=== PATIENT | female | born 1955 | race Caucasian/White ===

== ENCOUNTER → 2017-05-24 | Outpatient (CLI) | payer BC ==
[~2017-05-24] MED LIST: DRV100 PO; IBUP600T44 PO; PXL20 PO; ROPI0.25 PO; TMXUNK
--- NOTE | 2017-05-27 08:01 | MAMMOGRAPHY REPORT ---
BILATERAL DIGITAL SCREENING MAMMOGRAM TOMOSYNTHESIS WITH CAD: 05/24/2017 CLINICAL HISTORY: Asymptomatic. Personal history of breast cancer. TECHNIQUE: Breast tomosynthesis in addition to standard 2D mammography was performed. Current study was also evaluated with a Computer Aided Detection (CAD) system. COMPARISON: Comparison is made to exams dated: 01/13/2016 mammogram, 12/06/2014 mammogram, 12/06/2014 s tereotactic biopsy, 11/24/2014 mammogram, 11/02/2014 mammogram, and 08/27/2013 mammogram - [facility]. BREAST COMPOSITION: The tissue of both breasts is heterogeneously dense, which may obscure small mas ses. FINDINGS: There is a possible small cluster of calcifications in the left 6:00 breast, for which spo t magnification views are recommended for further evaluation. The remainder of both breasts are stable compared to prior exams, without suspicious masses, calcific ations, or areas of architectural distortion noted. There is stable postsurgical architectural disto rtion in the right upper outer quadrant, with a linear scar marker denoting a scar on the right upper outer breast. A biopsy marker clip is again noted in the right superior breast from prior stereotac tic biopsy. Other scattered bilateral benign-appearing calcifications are not significantly changed. IMPRESSION: ACR BI-RADS CATEGORY 0: INCOMPLETE EVALUATION: NEED ADDITIONAL IMAGING EVALUATION Left breast calcifications, for which additional imaging evaluation is recommended. The patient will be called to schedule an appointment. Approximately 10% of breast cancers are not detected with mammography. A negative mammographic report should not delay biopsy if a clinically suggestive mass is present. Qiana Turcios M.D. ah/:05/25/2017 10:54:44 Knifeman: Renee De La Rosa M, [facility] letter sent: Addl Imaging 0 BI-RADS Code: ACR BI-RADS Category 0: Incomplete Evaluation: Need Additional Imaging Evaluation
== END | disposition home or self-care (01) ==
LOC: C.MAMM 14:24
PROVIDERS: ATTEND Physician Assistant
DX: Z12.31 Encounter for screening mammogram for malignant neoplasm of breast (principal); Z85.3 Personal history of malignant neoplasm of breast; N64.89 Other specified disorders of breast

== ENCOUNTER → 2017-05-31 | Outpatient (CLI) | payer BC ==
--- NOTE | 2017-05-31 14:13 | MAMMOGRAPHY REPORT ---
UNILATERAL LEFT DIGITAL DIAGNOSTIC MAMMOGRAM: 05/31/2017 CLINICAL HISTORY: Callback from screening mammogram for left breast calcifications. TECHNIQUE: Spot magnification left CC and ML views were obtained. COMPARISON: Comparison is made to exams dated: 05/24/2017 mammogram, 01/13/2016 mammogram, 12/06/2014 s tereotactic biopsy, 11/24/2014 mammogram, 11/02/2014 mammogram, and 08/27/2013 mammogram - [facility]. BREAST COMPOSITION: The tissue of the left breast is heterogeneously dense, which may obscure small masses. FINDINGS: There is a new small 2 mm cluster of 3 calcifications in the left central breast. On the M L view, one of the calcifications is curvilinear in shape suggesting that these could represent evolv ing rim calcifications. The calcifications are probably benign and recommend short interval follow-u p in 6 months to reevaluate. IMPRESSION: ACR-BI-RADS CATEGORY 3: PROBABLY BENIGN Small cluster of 3 calcifications in the left central breast is probably benign. Recommend follow-up diagnostic tomosynthesis mammograms of the left breast in 6 months to confirm stability. The patient has been verbally notified of the results. Approximately 10% of breast cancers are not detected with mammography. A negative mammographic report should not delay biopsy if a clinically suggestive mass is present. Qiana Turcios M.D. /:05/31/2017 13:30:38 Legal Job Titles: Priscilla MILLER)(Dar[place]), [facility] letter sent: Follow Up Recommended 3 BI-RADS Code: ACR-BI-RADS Category 3: Probably Benign
== END | disposition home or self-care (01) ==
LOC: C.MAMM 13:12
PROVIDERS: ATTEND Obstetrics & Gynecology
DX: R92.1 Mammographic calcification found on diagnostic imaging of breast (principal)

== ENCOUNTER → 2017-11-29 | Outpatient (CLI) | payer BC ==
--- NOTE | 2017-12-02 07:46 | MAMMOGRAPHY REPORT ---
UNILATERAL LEFT DIGITAL DIAGNOSTIC MAMMOGRAM TOMOSYNTHESIS WITH CAD: 11/29/2017 CLINICAL HISTORY: Six-month follow-up of left breast calcifications. TECHNIQUE: Breast tomosynthesis in addition to standard 2D mammography was performed. Current study was also evaluated with a Computer Aided Detection (CAD) system. Left CC and MLO 2D and tomosynthesi s images and spot magnification left CC and ML views were obtained. COMPARISON: Comparison is made to exams dated: 05/31/2017 mammogram, 05/24/2017 mammogram, 01/13/2016 mammogram, 12/06/2014 mammogram, 12/06/2014 stereotactic biopsy, and 11/24/2014 mammogram - [facility]. BREAST COMPOSITION: The tissue of the left breast is heterogeneously dense, which may obscure small masses. FINDINGS: Spot magnification views demonstrate interval coarsening of the small 2 mm cluster of calci fications within the left central breast. Given the interval coarsening, the calcifications are now clearly benign and have the appearance of dystrophic calcifications. The remainder of the left breas t is stable compared to prior exams, without suspicious masses, calcifications, or areas of analytics architect ural distortion noted. IMPRESSION: ACR BI-RADS CATEGORY 2: BENIGN There is no mammographic evidence of malignancy in the left breast. Return to annual mammogram screen ing schedule is recommended, due May 2018. The patient has been verbally notified of the results . Approximately 10% of breast cancers are not detected with mammography. A negative mammographic report should not delay biopsy if a clinically suggestive mass is present. Qiana Turcios M.D. /:11/29/2017 12:29:51 [employer]crete Plant Laborer: Ketty Bruner, [facility] letter sent: Normal 1/2 BI-RADS Code: ACR BI-RADS Category 2: Benign
== END | disposition home or self-care (01) ==
LOC: C.MAMM 11:19
PROVIDERS: ATTEND Obstetrics & Gynecology
DX: R92.1 Mammographic calcification found on diagnostic imaging of breast (principal)